=== PATIENT | male | born 1980 | race Hispanic/Latino ===

== ENCOUNTER 2021-12-28 02:42 | Emergency (ER) | payer SELFPAY ==
[~2021-12-28] VITALS: Ht 167.6 cm; Wt 69.5 kg
[~2021-12-28 02:42] MED LIST: FLEXERIL PO; NAPROSYN500 MG PO
[2021-12-28 02:49] VITALS: BP 119/81
[2021-12-28] MEDS ORDERED: MOTRIN800 MG PO (03:04)
[2021-12-28] MEDS ORDERED: FLEXERIL5 M1 PO (03:04)
[2021-12-28 03:20] VITALS: BP 119/81
== END 2021-12-28 03:22 | disposition home or self-care (01) | DRG 552 ==
LOC: ED 02:42
DX: M54.6 Pain in thoracic spine (principal)